=== PATIENT | male | born 1950 | race Caucasian/White ===

== ENCOUNTER 2017-04-09 19:13 | Inpatient (IN) | payer OTHER ==
[~2017-04-09] VITALS: Ht 175.3 cm; Wt 104.5 kg
[2017-04-09 20:15] VITALS: BP 157/103; PULSE 82; TEMP 36.7; O2SAT 96; Ht 175.3 cm; Wt 104.5 kg
[2017-04-09] MEDS ORDERED: ACETAMINOPHEN 325 MG TAB PO PRN (20:15)
[2017-04-09] MEDS ORDERED: BISACODYL 10 MG SUPP PR PRN (20:15)
[2017-04-09] MEDS ORDERED: POLYETHYLENE (MIRALAX) 17 GM PACK PO PRN (20:15)
[2017-04-09] MEDS ORDERED: MAGNESIUM HYDROXIDE SUSP 30 ML UDC PO PRN (20:15)
[2017-04-09] MEDS ORDERED: MoRPHine SULFATE 2 MG/ML CARP IV PRN (20:15)
[2017-04-09] MEDS ORDERED: SOD PHOSPHATE/SOD BIPHOSPHATE ENEMA 132 ML BTL PR PRN (20:15)
[2017-04-09] MEDS ORDERED: ONDANSETRON INJ 2 MG/ML 2 ML VIAL IV PRN (20:15)
[2017-04-09] MEDS ORDERED: OXYCODONE HCL IR 5 MG TAB (IMMEDIATE RELEASE) PO PRN ×2 (20:15)
[2017-04-09] MEDS ORDERED: NALOXONE HCL 0.4 MG/1 ML VIAL/CARP IV PRN (20:15)
[2017-04-09 21:12] LABS: HEMATOCRIT 39.9 % (42-52)
[2017-04-09 21:39] LABS: FERRITIN 38.3 ng/ml (8.0-388.0)
[2017-04-09 22:50] VITALS: BP 167/86; PULSE 86; TEMP 36.6; O2SAT 96
[2017-04-09] MEDS ORDERED: LIDOCAINE HCL 2% JELLY 30 ML TUBE EXT ONE (23:26)
[2017-04-09] MEDS ORDERED: NURSING DECISION MEDICATION ORDER SCH (23:30)
[2017-04-09] MEDS: MoRPHine SULFATE 4 MG/ML 1 ML CARP\\VIAL IV PRN (23:31)
[2017-04-09] MEDS: DOCUSATE SODIUM/SENNA 50/8.6MG TAB PO SCH (23:33)
[2017-04-09] MEDS: LACTATED RINGER'S 1000ML 1,000 ML IV SCH (23:33)
[2017-04-10] VITALS (8 sets, daily range): BP systolic 127–166; BP diastolic 71–85; PULSE 76–91; TEMP 36.4–37.2; O2SAT 94–98
--- NOTE | 2017-04-10 00:30 | HISTORY & PHYSICAL EXAMINATION ---
DATE OF ADMISSION: 04/09/2017 PRIMARY CARE PHYSICIAN: The patient has no primary care doctor. HISTORY OF PRESENT ILLNESS: History is obtained from the patient and records. Medical history is significant for venous insufficiency, past tobacco abuse. Patient was helping somebody clean out the garage today when he lost his balance and landed onto his left side He subsequently noted excruciating left hip pain and was unable to get up. Patient was evaluated at [facility] Emergency Room. Plain x-ray showed left femoral neck fracture. Transferred to [facility] after coordinating with orthopedics due to lack of Orthopedics services at [facility] this weekend. MEDICAL HISTORY: As above. No previous colonoscopies in the past. SURGERIES: None. HOME MEDICATIONS: None. ALLERGIES: No drug allergies. FAMILY HISTORY: No heart disease. No diabetes. No strokes. No blood clots as per the patient. PERSONAL AND SOCIAL HISTORY: Past tobacco abuse. No chronic intake of alcoholic beverages. Retired from . REVIEW OF SYSTEMS: As per HPI. all other ROS negative. FUNCTIONAL HISTORY: Still able to do housework without exertional chest pain or shortness of breath. PHYSICAL EXAMINATION: VITAL SIGNS: Blood pressure was noted to be 150/103, pulse rate 82, RR 16, temperature 37, and sats 96% on room air. GENERAL: Noted to be pleasant. No respiratory distress. SKIN: Pallor. HEENT: Ovid palpebral conjunctivae. Dry mucosa. chronic ptosis on the left. NECK: No JVD. Supple. CHEST: Clear to auscultation. HEART: Regular rate and rhythm. ABDOMEN: Some distention, nontender. EXTREMITIES: Tenderness in the left hip. NEUROLOGIC: No gross focality. LABORATORY DATA: From [place], hemoglobin 12.9, hematocrit 30, white cell count is 10, and platelets 200. Sodium 140, potassium 3.5, chloride 100, CO2 of 22, BUN 21, creatinine 1.1, and glucose 138. Chest x-ray from [facility], no acute pathology. EKG as per my interpretation, normal sinus rhythm, incomplete right bundle branch block. No ischemia. ASSESSMENT: 1. Traumatic left femoral fracture secondary to mechanical fall. 2. Anemia, unknown duration. 3. Hyperglycemia, rule out diabetes. 4. Past tobacco abuse PLAN: F Analgesia. Orthopedics consult RE L femoral fracture. Possible surgery tomorrow as per Dr. Roberts. No medical contraindication to contemplated Orthopedics procedure. Patient is at low risk for cardiac complications for contemplated procedure as per RCRI criteria. Anemia workup. Check hemoglobin A1c. DVT prophylaxis. SCDs for now. Recommend pharmacologic anticoagulation with Lovenox subQ once bleeding risk is deemed to be minimal and negligible postop and if anemia workup negative for GI bleed. Full code. Patient requesting his son be updated on plan care. Mr. Corey Henry Jr. at [phone]. [facility]
[2017-04-10] MEDS ORDERED: LIDOCAINE HCL 2% JELLY 30 ML TUBE EXT PRN (03:45)
[2017-04-10] MEDS: MoRPHine SULFATE 4 MG/ML 1 ML CARP\\VIAL IV PRN ×2 (05:49→08:26)
[2017-04-10 07:03] LABS: COMPLETE YES; EOS % 0.2 %; HEMATOCRIT 39.7 % (42-52); IG% 0.2 %; LYMPH % 8.3 %; MEAN CELL VOLUME 92.1 fL (80-100); MEAN CORPUSCULAR HEMOGLOBIN 31.1 pg (25-34); MEAN CORPUSCULAR HGB CONC 33.8 g/dl (32-36); MEAN PLATELET VOLUME 8.7 fL (7.4-10.4); MONO % 9.2 %; NEUT % 82.1 %; PLATELET COUNT 147 K/uL (130-400); RED BLOOD COUNT 4.31 M/uL (4.7-6.1); WHITE BLOOD COUNT 8.39 K/uL (4.8-10.8)
[2017-04-10] MEDS ORDERED: BACITRACIN 50000 UNIT VIAL ONE ×2 (08:50→12:13)
--- NOTE | 2017-04-10 08:59 | Medical Consult ---
Consultation Note Date of Service Apr 10, 2017. Consultation Note This is a consultation on patient Corey Henry a 66-year-old gentleman seen in the request of Dr. Ho. Patient was assisting a friend clean out her garage in the [place] area when he tripped and fell onto his left side. He had immediate pain and inability to ambulate due to left hip pain. He was transferred to the [facility] where he was seen and evaluated with x -rays and noted to have a displaced left femoral neck fracture. The patient [facility] to come [facility] and was then transferred. The patient claims that he had no loss consciousness or shortness of breath or chest pain prior to the fall. Past medical history: GERD, severe dental caries and halitosis. Past surgical history: Denies Allergies: No known drug allergies Medications: Pepcid Social history: He denies tobacco, drug use, alcohol. History of tobacco abuse. 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 He lives alone. Children, yes. Physical exam: Patient lies supine in his hospital room bed. He is awake and alert. A and O 3. Speech is clear and fluent. Affect is appropriate. Examination of the left hip demonstrates skin is warm dry and intact. The left lower extremity is shortened and externally rotated. He has tenderness on palpation over the left inguinal region and groin. Positive logroll test. Positive heel strike. Unable to ambulate due to pain at the left proximal hip. Active and passive range of motion is limited due to pain and guarding at the left hip. Cap refill is brisk at less than 2 seconds. Dorsalis pedis and posterior tibial pulses are 2 out of 4 bilaterally. Radiographs demonstrate a displaced Garden 4 left femoral neck fracture. Impression: Displaced left Garden 4 femoral neck fracture after a fall on level ground. Recommendations: Hemiarthroplasty left hip to be performed today, nothing by mouth, consent on chart, DVT prophylaxis, preoperative antibiotics. Thank you for the opportunity to consult in care of this patient. Ramos Roberts D.O.
[2017-04-10] MEDS ORDERED: FENTANYL CITRATE INJ 50 MCG/1 ML 2 ML VIAL ONE (10:15)
[2017-04-10] MEDS ORDERED: MIDAZOLAM HCL 1 MG/ML 2ML VIAL ONE ×2 (10:15)
[2017-04-10] MEDS ORDERED: CEFAZOLIN SOD 1 GM VIAL ONE ×2 (10:53→11:03)
[2017-04-10] MEDS ORDERED: LIDOCAINE HCL 2% 2 ML VIAL (20MG/ML) ONE (11:24)
[2017-04-10] MEDS ORDERED: PROPOFOL IV EMULSION 10 MG/ML 20 ML VIAL IV ONE (11:24)
[2017-04-10] MEDS ORDERED: ORTHO JOINT ANESTHETIC ONE (12:13)
[2017-04-10] MEDS ORDERED: POVIDONE-IODINE OP SOLN 30 ML BTL ONE (12:13)
[2017-04-10] MEDS ORDERED: BUPIVACAINE 0.5 % 5 MG/1 ML MPF 30ML VIAL ONE (12:20)
[2017-04-10] MEDS ORDERED: BUPIVACAINE/EPINEPHRINE 0.5% MPF 1:200,000 10 ML VIAL ONE (12:26)
[2017-04-10] MEDS ORDERED: FENTANYL CITRATE INJ 50 MCG/1 ML 2 ML VIAL IV PRN (13:15)
[2017-04-10] MEDS ORDERED: ATROPINE SULFATE 0.1 MG/ML 5ML SYR IV PRN (13:15)
[2017-04-10] MEDS ORDERED: ONDANSETRON INJ 2 MG/ML 2 ML VIAL IV PRN ×2 (13:15→14:00)
[2017-04-10] MEDS ORDERED: EpHEDrine SULFATE INJ 50 MG/ML AMP IV PRN (13:15)
[2017-04-10] MEDS ORDERED: HYDROmorphone INJ 1 MG/ML SYR IV PRN (13:15)
--- NOTE | 2017-04-10 13:43 | [facility] Operative Report ---
Operative Report Operative Date Apr 10, 2017. Pre-Operative Diagnosis Displaced left Garden 4 femoral neck fracture Post-Operative Diagnosis Displaced left Garden 4 femoral neck fracture Procedure(s) Performed Left Hip Hemiarthroplasty with striker accolade 2 stem size #7/132, 26 mm cobalt chrome +0 mm head, U H1 51 mm bipolar head with a polyethylene liner. Surgeon Dr Roberts Oracle Erp Developer Surgeon(s) Joan Pineda PA-C Estimated Blood Loss 50ML Findings See dictation Specimens A. Left femoral head Drains Hemovac 2 Anesthesia spinal with sedation and local intra-articular Complication(s) None Disposition Recovery Room / PACU Indications This is a 66-year-old gentleman who was helping a friend cleaning out her garage in [place]. He felt the ground after he tripped and had immediate left hip pain. He was unable to ambulate. He was then transported eventually to [facility] via [facility] ER. He was noted to have a left displaced Garden 4 femoral neck fracture. Patient was then evaluated and cleared for surgery. Patient was scheduled for surgery as indicated. Description of Procedure All potential risks, benefits, complications, alternatives, rehabilitation, potential for incomplete relief of symptoms, need for further surgery, persistent numbness, weakness, stiffness, persistent pain, DVT, PE, , bone fracture, hardware breakage, nonunion, malunion or wound complications were discussed with the patient. The patient decided to proceed with the procedure as indicated. Procedure: The patient was taken to the operative suite and placed upon the operating table. After review of the consent and identification of proper operative site the patient was sedated and a spinal anesthetic was administered. Patient was then placed in a right lateral decubitus position with the affected side up. Stulberg positioning devices were used to stabilize the pelvis. All bony prominences were properly padded and protected. Axillary roll was placed. Next the left hip was then sterilely prepped and draped in usual fashion. 10 blade scalpel was used to make an incision centered over the greater trochanter extending proximally and distally. The incision was deepened to the subcutaneous tissue. Meticulous hemostasis was achieved with electrocautery. The iliotibial band was then incised in line with the skin incision. A Charnley retractor was applied over towels moistened with sterile saline. The abductor split was made centered over the femoral neck and head. Next the left cauteries used to carefully dissect the gluteus medius and vastus lateralis anteriorly. Next the gluteus minimus and capsule were then incised and also dissected and retracted anteriorly. Dissection was performed down below the level of the femoral neck to the level of the lesser trochanter. The fractured femoral neck was noted and the femoral neck cut was made with a sagittal saw. Next the femoral head was then removed from the acetabulum using a threaded spike and mallet. 51 mm head was then measured to caliper. D1 millimeter femoral head trial was placed in the acetabulum noted to have perfect fit. Next the box osteotome was then used to resect the proximal portion of the femoral endosteal bone. The hand cloth examiner was placed in the proximal femur. Next sequential broaching was performed to a size 7. A standard neck and offset with +0 femoral head was trialed with a 51 mm femoral head outer diameter. This is reduced into the acetabulum and full range of motion was noted with appropriate feel. The hip was stable in internal rotation external rotation abduction and adduction. Next the trial components removed. Pulsatile lavage with bacitracin was then used to cleanse the incision entirely. Next the final femoral component was impacted into the proximal femur. The femoral head and bipolar head were then attached to the proximal femur. The hip was then reduced. Excellent dynamic motion and stability was achieved. There was no instability. Next a dilute Betadine solution was placed in the wound fillet to the level of the skin and left in place proximal to 2 minutes. Next Betadine solution was then suctioned from the wound and then pulsatile lavage used to cleanse the wound with bacitracin lavage. Next 2.5 mm drill holes were made in the greater trochanter to perform an enhanced abductor repair. #5 FiberWire was then passed through the bone tunnels to repair the capsule, gluteus medius, gluteus minimus and the abductor fascia. This was then reattached to the greater trochanter. 10 Slovak Hemovac drains 2 were then passed exiting the anterior aspect of the hip. The FiberWire suture closed her was then tied and cut. Next #5 FiberWire was then used to perform a buried knot closure of the proximal portion of the vastus lateralis and the distal aspect of the gluteus medius. Next #1 Vicryl was then used to close the remainder of the gluteus medius and the vastus lateralis. Next the iliotibial band was then closed using interrupted [id number] #1 Vicryl suture. The wound was then once again irrigated with pulsatile lavage and the hip joint capsules and injected with proximal a 30 mL of half percent Marcaine with epinephrine. Next the dermis was closed using buried interrupted 2-0 Vicryl. Skin was closed using skin gato. Sterile compressive dressing was applied overwrapped with foam tape. The patient was awakened and taken to recovery in stable condition. I attest to the content of the Intraoperative Record and any orders documented therein. Any exceptions are noted below.
--- NOTE | 2017-04-10 13:46 | Progress Note ---
Internal Med Progress Note Date of Service: Apr 10, 2017. Provider Documentation: SUBJECTIVE: Patient is doing well post operatively Pain is controlled. No chest pain, SOB, nausea, vomiting. OBJECTIVE: Vital Signs-as noted below Exam: General-AAOX3, no distress Neck-Supple, No JVD Lungs-AEBE, no wheezing, rhonchi, rales Heart-S1, S2 normal, no murmurs Extremities-S/P Left femoral neck fracture repair Lab data as noted below. ASSESSMENT & PLAN: LEFT FEMORAL NECK FRACTURE S/P TRAUMA Patient slipped and fell while helping a friend in her garage. Was transferred from [facility], as no orthopedic coverage over weekend. -Pre operatively cleared for surgery by admitting doctor -S/P Left femoral neck fracture repair -Pain mx, Wound care, DVT prophylaxis, PT/OT per primary team GERD -on protonix DVT Prophylaxis -Per primary team DISPOSITION To be determined Vital Signs: Date Time Temp Pulse Resp B/P (MAP) Pulse Ox O2 Delivery O2 Flow Rate FiO2 04/10/17 17:35 36.9 91 18 151/78 (102) 94 Room Air 04/10/17 16:40 36.9 85 18 130/76 (94) 98 Room Air 04/10/17 15:33 36.5 90 18 142/83 (102) 97 Room Air 04/10/17 15:01 36.4 89 18 146/81 (102) 97 Room Air 04/10/17 14:30 36.5 76 20 139/80 (99) 94 Nasal Cannula 1.0 04/10/17 14:30 94 Nasal Cannula 1.0 04/10/17 14:30 94 Nasal Cannula 1.0 04/10/17 14:19 79 16 120/77 99 Nasal Cannula 2 04/10/17 14:10 80 16 118/78 98 Nasal Cannula 2 04/10/17 14:00 36.4 77 16 124/71 100 Nasal Cannula 2 04/10/17 13:50 76 16 122/68 100 Oxymask 3 04/10/17 13:43 36.3 80 16 128/76 100 Oxymask 10 04/10/17 08:30 Room Air 04/10/17 07:14 36.9 78 18 166/85 (112) 95 Room Air 04/09/17 23:50 Room Air 04/09/17 22:50 36.6 86 16 167/86 (113) 96 Room Air 04/09/17 20:15 Room Air 04/09/17 20:15 36.7 82 16 157/103 (121) 96 Room Air 04/09/17 20:15 Room Air Lab Results: Results Past 24 Hours Test 04/09/17 20:56 04/10/17 06:22 Range/Units Hemoglobin 13.6 13.4 14.0-18.0 g/dL Hematocrit 39.9 39.7 42-52 % Absolute Reticulocyte Count 0.05 0.02-0.10 10^6/uL Percent Reticulocyte Count 1.2 0.5-2.0 % Iron Level 40 35-175 mcg/dl Total Iron Binding Capacity 332 250-450 mcg/dl Transferrin 255 200-360 mg/dl Transferrin % Saturation 11 20-50 % Ferritin 38.3 8.0-388.0 ng/ml Vitamin B12 Level 214 211-911 pg/mL Folate 8.85 >5.38 ng/mL White Blood Count 8.39 4.8-10.8 K/uL Red Blood Count 4.31 4.7-6.1 M/uL Mean Corpuscular Volume 92.1 80-100 fL Mean Corpuscular Hemoglobin 31.1 25-34 pg Mean Corpuscular Hemoglobin Concent 33.8 32-36 g/dl Platelet Count 147 130-400 K/uL Mean Platelet Volume 8.7 7.4-10.4 fL Neutrophils (%) (Auto) 82.1 % Lymphocytes (%) (Auto) 8.3 % Monocytes (%) (Auto) 9.2 % Eosinophils (%) (Auto) 0.2 % Basophils (%) (Auto) 0.0 % Neutrophils # (Auto) 6.88 1.4-6.5 K/uL Lymphocytes # (Auto) 0.70 1.2-3.4 K/uL Monocytes # (Auto) 0.77 0.11-0.59 K/uL Eosinophils # (Auto) 0.02 0-0.5 K/uL Basophils # (Auto) 0.00 0-0.2 K/uL RDW Standard Deviation 45.2 36.4-46.3 fL RDW Coefficient of Variation 13.5 11.5-14.5 % Immature Granulocyte % (Auto) 0.2 % Immature Granulocyte # (Auto) 0.02 0.00-0.02 K/uL Microbiology Results 04/09/17 MRSA DNA Surveillance Screen - Final, Complete Specimen Negative for MRSA by DNA Probe
[2017-04-10] MEDS ORDERED: ZOLPIDEM TARTRATE 5 MG TAB PO PRN (14:00)
[2017-04-10] MEDS ORDERED: MoRPHine SULFATE 2 MG/ML CARP IV PRN (14:00)
[2017-04-10] MEDS ORDERED: OXYCODONE HCL IR 5 MG TAB (IMMEDIATE RELEASE) PO PRN (14:00)
[2017-04-10] MEDS ORDERED: TAMSULOSIN HCL 0.4 MG CAP PO PRN (14:00)
[2017-04-10] MEDS ORDERED: METOCLOPRAMIDE HCL INJ 5 MG/ML 2 ML VIAL IV PRN (14:00)
[2017-04-10] MEDS ORDERED: MAGNESIUM HYDROXIDE SUSP 30 ML UDC PO PRN (14:00)
[2017-04-10] MEDS ORDERED: DiphenhydrAMINE HCL 50 MG/ML VIAL IV PRN (14:00)
[2017-04-10] MEDS ORDERED: ALUMINUM/MAGNESIUM/SIMETH (MAALOX MAX) 30 ML UDC PO PRN (14:00)
--- NOTE | 2017-04-10 14:00 | Anesthesiology Progress Note ---
Anesthesia Post Op Note Date & Time Apr 10, 2017 at 14:00 Vital Signs Pain Intensity: 0 Vital Signs Past 12 Hours Date Time Temp Pulse Resp B/P (MAP) Pulse Ox O2 Delivery O2 Flow Rate FiO2 04/10/17 13:50 76 16 122/68 100 Oxymask 3 04/10/17 13:43 36.3 80 16 128/76 100 Oxymask 10 04/10/17 08:30 Room Air 04/10/17 07:14 36.9 78 18 166/85 (112) 95 Room Air Notes Mental Status: alert / awake / arousable, participated in evaluation Pt Amnestic to Procedure: Yes Nausea / Vomiting: adequately controlled Pain: adequately controlled Airway Patency, RR, SpO2: stable & adequate BP & HR: stable & adequate Hydration State: stable & adequate Neuraxial Anesthesia: was administered, sensory block is resolving Anesthetic Complications: no major complications apparent
--- NOTE | 2017-04-10 14:32 | DIAGNOSTIC IMAGING REPORT ---
AP PELVIS AND LEFT HIP 2 VIEWS CLINICAL HISTORY: Left hip arthroplasty COMPARISON STUDY: Outside radiographic study dated 04/09/2017 FINDINGS: There are postsurgical changes of a bipolar left hip arthroplasty. There is an overlying surgical drain. There is air in the soft tissues. No acute fractures are visualized. There are overlying skin gato. There is a stable 24 mm sclerotic lesion in the intertrochanteric portion of the right hip. IMPRESSION: 1. Postsurgical changes of a bipolar left hip arthroplasty 2. Stable 24 mm sclerotic lesion within the intertrochanteric portion of the right Electronically signed by: Js Burroughs M.D. 04/10/2017 2:30 PM Dictated Date/Time: 04/10/2017 2:29 PM
[2017-04-10] MEDS: LACTATED RINGER'S 1000ML 1,000 ML IV SCH (16:07)
[2017-04-10] MEDS: ACETAMINOPHEN 500 MG TAB PO SCH ×2 (16:08→23:39)
[2017-04-10] MEDS: DOCUSATE SODIUM/SENNA 50/8.6MG TAB PO SCH (21:00)
[2017-04-10] MEDS: FERROUS GLUCONATE 324 MG TAB PO SCH (21:27)
[2017-04-10] MEDS: SENNA 8.6 MG TAB PO SCH (21:27)
[2017-04-10] MEDS: ASPIRIN 81 MG ECTAB PO SCH (21:27)
[2017-04-10] MEDS ORDERED: NURSING DECISION MEDICATION ORDER SCH (23:15)
[2017-04-11 03:10] VITALS: BP 135/75; PULSE 79; TEMP 36.6; O2SAT 96
[2017-04-11] MEDS: ACETAMINOPHEN 500 MG TAB PO SCH ×3 (06:14→22:27)
[2017-04-11 06:56] LABS: ESTIMATED AVERAGE GLUCOSE 100 mg/dl; HA1C FLAG Normal (Normal)
[2017-04-11 07:14] LABS: BASO % 0.1 %; BASO ABS # 0.01 K/uL (0-0.2); COMPLETE YES; EOS % 0.6 %; HEMATOCRIT 35.7 % (42-52); IG% 0.2 %; LYMPH % 8.3 %; LYMPH ABS # 0.74 K/uL (1.2-3.4); MEAN CELL VOLUME 92.7 fL (80-100); MEAN CORPUSCULAR HEMOGLOBIN 32.7 pg (25-34); MEAN CORPUSCULAR HGB CONC 35.3 g/dl (32-36); MEAN PLATELET VOLUME 8.5 fL (7.4-10.4); MONO % 9.5 %; NEUT % 81.3 %; PLATELET COUNT 117 K/uL (130-400); RED BLOOD COUNT 3.85 M/uL (4.7-6.1); WHITE BLOOD COUNT 8.93 K/uL (4.8-10.8)
[2017-04-11 07:36] VITALS: BP 131/73; PULSE 79; TEMP 37; O2SAT 95
--- NOTE | 2017-04-11 08:04 | Orthopedic Progress Note ---
Orthopedic Progress Note Date of Service Apr 11, 2017. Subjective Post OP Day: 1 Reports: feeling well, pain controlled w PO medications, Denies: complaints, chest pain, SOB, light headedness, calf pain Objective calves soft nontender, N/V intact, hip located, capillary refill less than 2 sec., A&O x3, toes mobile, hemovac drainage (~300 cc) Date Time Temp Pulse Resp B/P (MAP) Pulse Ox O2 Delivery O2 Flow Rate FiO2 04/11/17 07:36 37.0 79 18 131/73 (92) 95 Room Air 04/11/17 03:10 36.6 79 18 135/75 (95) 96 Room Air 04/10/17 23:40 Room Air 04/10/17 23:15 37.2 83 18 127/71 (89) 94 Room Air 04/10/17 23:15 37.2 83 18 127/71 (89) 94 Room Air 04/10/17 19:00 36.6 88 18 128/75 (92) 94 Room Air 04/10/17 17:35 36.9 91 18 151/78 (102) 94 Room Air 04/10/17 16:40 36.9 85 18 130/76 (94) 98 Room Air 04/10/17 15:33 36.5 90 18 142/83 (102) 97 Room Air 04/10/17 15:30 Room Air 04/10/17 15:01 36.4 89 18 146/81 (102) 97 Room Air 04/10/17 14:30 36.5 76 20 139/80 (99) 94 Nasal Cannula 1.0 04/10/17 14:30 94 Nasal Cannula 1.0 04/10/17 14:30 94 Nasal Cannula 1.0 04/10/17 14:19 79 16 120/77 99 Nasal Cannula 2 04/10/17 14:10 80 16 118/78 98 Nasal Cannula 2 04/10/17 14:00 36.4 77 16 124/71 100 Nasal Cannula 2 04/10/17 13:50 76 16 122/68 100 Oxymask 3 04/10/17 13:43 36.3 80 16 128/76 100 Oxymask 10 04/10/17 08:30 Room Air Laboratory Results 24 Hours: Test 04/11/17 06:52 White Blood Count 8.93 K/uL Red Blood Count 3.85 M/uL Hemoglobin 12.6 g/dL Hematocrit 35.7 % Mean Corpuscular Volume 92.7 fL Mean Corpuscular Hemoglobin 32.7 pg Mean Corpuscular Hemoglobin Concent 35.3 g/dl Platelet Count 117 K/uL Mean Platelet Volume 8.5 fL Neutrophils (%) (Auto) 81.3 % Lymphocytes (%) (Auto) 8.3 % Monocytes (%) (Auto) 9.5 % Eosinophils (%) (Auto) 0.6 % Basophils (%) (Auto) 0.1 % Neutrophils # (Auto) 7.26 K/uL Lymphocytes # (Auto) 0.74 K/uL Monocytes # (Auto) 0.85 K/uL Eosinophils # (Auto) 0.05 K/uL Basophils # (Auto) 0.01 K/uL Assessment & Plan Assessment: POD #1 s/p left hip bipolar hemiarthroplasty Plan: Patient lives alone in an apartment but ~20 steps to get to his floor. Discussed rehab vs. home with home health and going to his son's house. He will discuss this further with social worker school. PT/OT DVT prophylaxis--ASA 81 mg BID for 4 wks. D/C planning Inhouse Planning Pain Management: Morphine, PO Tylenol, Oxy IR DVT Prophylaxis: TEDs, SCDs, ASA Discharge Planning Discharge Planning: uncertain ([facility] vs. home with home health and going to his son's house) DVT Prophylaxis: TEDs, ASA
[2017-04-11] MEDS: FERROUS GLUCONATE 324 MG TAB PO SCH ×3 (08:38→17:55)
[2017-04-11] MEDS: ASPIRIN 81 MG ECTAB PO SCH ×2 (08:38→20:44)
[2017-04-11] MEDS: MULTIVITAMIN TAB PO SCH (08:39)
[2017-04-11] MEDS: PANTOprazole SOD 40 MG TAB PO SCH (08:39)
--- NOTE | 2017-04-11 10:42 | Progress Note ---
Internal Med Progress Note Date of Service: Apr 11, 2017. Provider Documentation: SUBJECTIVE: Patient is doing well post operatively. Pain is controlled. OOB to chair. No chest pain, SOB, nausea, vomiting. OBJECTIVE: Vital Signs-as noted below Exam: General-AAOX3, no distress Neck-Supple, No JVD Lungs-AEBE, no wheezing, rhonchi, rales Heart-S1, S2 normal, no murmurs Extremities-S/P Left femoral neck fracture repair, drain + Lab data as noted below. ASSESSMENT & PLAN: LEFT FEMORAL NECK FRACTURE S/P TRAUMA : Patient slipped and fell while helping a friend in her garage. Was transferred from [facility], as no orthopedic coverage there over weekend. -S/P Left Hip Bipolar hemiarthroplasty on 04/10/17 -Pain mx, Wound care, DVT prophylaxis, PT/OT per orthopedics -H & H monitoring- Stable -Ortho on board- appreciate inputs ANEMIA Had anemia work up on admission- Iron studies, folate, vit b12- normal -Post operatively H & H - stable with a slight drop GERD -on protonix DVT Prophylaxis -ASA BID x 4 weeks per ortho DISPOSITION Likely home with home health - per patient would move to his son's home as has steps at his home. Would prefer Home with [facility] vs rehab. SS on board. Vital Signs: Date Time Temp Pulse Resp B/P (MAP) Pulse Ox O2 Delivery O2 Flow Rate FiO2 04/11/17 07:40 Room Air 04/11/17 07:36 37.0 79 18 131/73 (92) 95 Room Air 04/11/17 03:10 36.6 79 18 135/75 (95) 96 Room Air 04/10/17 23:40 Room Air 04/10/17 23:15 37.2 83 18 127/71 (89) 94 Room Air 04/10/17 23:15 37.2 83 18 127/71 (89) 94 Room Air 04/10/17 19:00 36.6 88 18 128/75 (92) 94 Room Air 04/10/17 17:35 36.9 91 18 151/78 (102) 94 Room Air 04/10/17 16:40 36.9 85 18 130/76 (94) 98 Room Air 04/10/17 15:33 36.5 90 18 142/83 (102) 97 Room Air 04/10/17 15:30 Room Air 04/10/17 15:01 36.4 89 18 146/81 (102) 97 Room Air 04/10/17 14:30 36.5 76 20 139/80 (99) 94 Nasal Cannula 1.0 04/10/17 14:30 94 Nasal Cannula 1.0 04/10/17 14:30 94 Nasal Cannula 1.0 04/10/17 14:19 79 16 120/77 99 Nasal Cannula 2 04/10/17 14:10 80 16 118/78 98 Nasal Cannula 2 04/10/17 14:00 36.4 77 16 124/71 100 Nasal Cannula 2 04/10/17 13:50 76 16 122/68 100 Oxymask 3 04/10/17 13:43 36.3 80 16 128/76 100 Oxymask 10 Lab Results: Results Past 24 Hours Test 04/11/17 06:52 Range/Units White Blood Count 8.93 4.8-10.8 K/uL Red Blood Count 3.85 4.7-6.1 M/uL Hemoglobin 12.6 14.0-18.0 g/dL Hematocrit 35.7 42-52 % Mean Corpuscular Volume 92.7 80-100 fL Mean Corpuscular Hemoglobin 32.7 25-34 pg Mean Corpuscular Hemoglobin Concent 35.3 32-36 g/dl Platelet Count 117 130-400 K/uL Mean Platelet Volume 8.5 7.4-10.4 fL Neutrophils (%) (Auto) 81.3 % Lymphocytes (%) (Auto) 8.3 % Monocytes (%) (Auto) 9.5 % Eosinophils (%) (Auto) 0.6 % Basophils (%) (Auto) 0.1 % Neutrophils # (Auto) 7.26 1.4-6.5 K/uL Lymphocytes # (Auto) 0.74 1.2-3.4 K/uL Monocytes # (Auto) 0.85 0.11-0.59 K/uL Eosinophils # (Auto) 0.05 0-0.5 K/uL Basophils # (Auto) 0.01 0-0.2 K/uL RDW Standard Deviation 46.9 36.4-46.3 fL RDW Coefficient of Variation 13.9 11.5-14.5 % Immature Granulocyte % (Auto) 0.2 % Immature Granulocyte # (Auto) 0.02 0.00-0.02 K/uL
[2017-04-11 15:28] VITALS: BP 145/82; PULSE 89; TEMP 36.9; O2SAT 97
[2017-04-11] MEDS: SENNA 8.6 MG TAB PO SCH (20:44)
[2017-04-11] MEDS: DOCUSATE SODIUM/SENNA 50/8.6MG TAB PO SCH (20:44)
[2017-04-11 23:15] VITALS: BP 127/75; PULSE 79; TEMP 36.9; O2SAT 96
[2017-04-12] MEDS: ACETAMINOPHEN 500 MG TAB PO SCH ×3 (06:33→22:19)
[2017-04-12 07:45] LABS: COMPLETE YES; EOS % 0.5 %; HEMATOCRIT 36.5 % (42-52); IG% 0.1 %; LYMPH % 10.2 %; LYMPH ABS # 0.86 K/uL (1.2-3.4); MEAN CELL VOLUME 92.9 fL (80-100); MEAN CORPUSCULAR HEMOGLOBIN 32.1 pg (25-34); MEAN CORPUSCULAR HGB CONC 34.5 g/dl (32-36); MEAN PLATELET VOLUME 8.5 fL (7.4-10.4); MONO % 10.2 %; PLATELET COUNT 121 K/uL (130-400); RED BLOOD COUNT 3.93 M/uL (4.7-6.1); WHITE BLOOD COUNT 8.41 K/uL (4.8-10.8)
[2017-04-12 07:48] VITALS: BP 138/82; PULSE 71; TEMP 36.6; O2SAT 97
--- NOTE | 2017-04-12 07:57 | Orthopedic Progress Note ---
Orthopedic Progress Note Date of Service Apr 12, 2017. Subjective Post OP Day: 2 Reports: feeling well, pain controlled w PO medications, Denies: complaints, chest pain, SOB, calf pain Objective calves soft nontender, N/V intact, hip located, capillary refill less than 2 sec., dressing C/D/I, A&O x3, toes mobile Date Time Temp Pulse Resp B/P (MAP) Pulse Ox O2 Delivery O2 Flow Rate FiO2 04/12/17 07:48 36.6 71 16 138/82 (100) 97 Room Air 04/11/17 23:20 Room Air 04/11/17 23:15 36.9 79 18 127/75 (92) 96 Room Air 04/11/17 15:40 Room Air 04/11/17 15:28 36.9 89 18 145/82 (103) 97 Room Air Laboratory Results 24 Hours: Test 04/12/17 07:26 White Blood Count 8.41 K/uL Red Blood Count 3.93 M/uL Hemoglobin 12.6 g/dL Hematocrit 36.5 % Mean Corpuscular Volume 92.9 fL Mean Corpuscular Hemoglobin 32.1 pg Mean Corpuscular Hemoglobin Concent 34.5 g/dl Platelet Count 121 K/uL Mean Platelet Volume 8.5 fL Neutrophils (%) (Auto) 79.0 % Lymphocytes (%) (Auto) 10.2 % Monocytes (%) (Auto) 10.2 % Eosinophils (%) (Auto) 0.5 % Basophils (%) (Auto) 0.0 % Neutrophils # (Auto) 6.64 K/uL Lymphocytes # (Auto) 0.86 K/uL Monocytes # (Auto) 0.86 K/uL Eosinophils # (Auto) 0.04 K/uL Basophils # (Auto) 0.00 K/uL Assessment & Plan Assessment: POD #2 s/p left hip bipolar hemiarthroplasty Plan: Patient lives alone in an apartment but ~20 steps to get to his floor. Rehab vs. SNF, possibly today. Orthopedically stable. Will sign off and follow up with patient in 2 weeks. PT/OT DVT prophylaxis--ASA 81 mg BID for 4 wks. D/C planning Inhouse Planning Pain Management: Morphine, PO Tylenol, Oxy IR DVT Prophylaxis: TEDs, SCDs, ASA Discharge Planning Discharge Planning: uncertain ([facility] vs. SNF, possibly today) DVT Prophylaxis: TEDs, ASA
--- NOTE | 2017-04-12 07:59 | Consultant Recommendations ---
Chiller Tender Recommendations Date of Service Apr 12, 2017. Chiller Tender Recommendations ACTIVITY RECOMMENDATIONS: SELF CARE INSTRUCTIONS AFTER HIP BIPOLAR HEMIARTHROPLASTY Until the incision and soft tissues around your hip have healed, there is a possibility that the hip prosthesis could dislocate. A. Observe the following precautions to prevent dislocation: 1. Don't bend your hip greater than 90 degrees. 2. Avoid crossing your legs or ankles while standing or lying. 3. Sit with your feet placed 6 inches apart. 4. When sitting, keep your knees below your hips. Sit on a firm surface, avoid deep, soft chairs and couches. Use an elevated toilet seat in the bathroom. 5. Don't bend over at the waist. Use a long handled shoehorn and a sock aid to help you put on your shoes and socks. A cocoa room operator can help you merchandise pickup/receiving associate objects that are too high or too low to reach. 6. Keep car riding to a minimum for at least one month after surgery. B. Your balance may be shaky for a while. Use crutches or a walker until directed by your doctor. C. Use hand rails when walking on stairs. D. Wear low heeled shoes with non-slip soles. E. Be sure that your floors are free of things that could trip you - throw rugs , electrical cords, small objects. Avoid wet and waxed floors, especially with crutches and canes. F. Try to walk several times a day with rest periods between. G. Continue with all the exercises taught to you in the hospital. Again, make walking a part of your daily routine. H. It is okay to shower if minimal to no drainage from incision. No baths. Do not soak wound. I. Physical Therapy as instructed by your Physician. SPECIAL CARE INSTRUCTIONS: VERY IMPORTANT TO READ AND REVIEW A. You may still be at risk for phlebitis and blood clots. 1. Wear surgical stockings (RANJIT hose) for one month, 20 hours daily, after surgery to improve circulation and reduce swelling. 2. Take Aspirin 81 mg every 12 hours for 30 days (blood thinning medications ), as directed by your doctor. 3. Have a pro-time (blood test) drawn according to your doctor's instructions. B. We encourage and will assist you in choosing a home-health agency of your choice. Home health nurses and therapists will monitor your temperature, wound healing and progress in exercise and walking. Home health nurses may also draw the blood for the pro-time test. They may instruct you in decreasing or increasing the amount of Coumadin you take. C. You must take antibiotics before having dental work, bladder, bowel and other surgery. Your doctor will provide you with a permanent card to carry describing precautions. D. Call [facility] if you have a temperature of 101 or greater, redness or swelling around the incision, cloudy drainage from incision, or sudden increase in pain in your hip, not relieved by your regular pain medication. E. Please call the office at if you have any concerns or questions about your operation or recovery. FOLLOW UP VISIT: If appointment is not already scheduled: Please call [facility] to make a follow-up appointment for 2 weeks after your surgery at .
[2017-04-12 08:06] LABS: BUN/CREATININE RATIO 27.4 (10-20); CALCIUM 8.4 mg/dl (8.5-10.1); POTASSIUM 3.7 mmol/L (3.5-5.1)
[2017-04-12 08:22] VITALS: O2SAT 97
[2017-04-12] MEDS: ASPIRIN 81 MG ECTAB PO SCH ×2 (09:04→20:46)
[2017-04-12] MEDS: PANTOprazole SOD 40 MG TAB PO SCH (09:04)
[2017-04-12] MEDS: FERROUS GLUCONATE 324 MG TAB PO SCH ×3 (09:04→18:24)
[2017-04-12] MEDS: MULTIVITAMIN TAB PO SCH (09:04)
[2017-04-12 10:00] VITALS: BP 120/78; PULSE 91; O2SAT 99
--- NOTE | 2017-04-12 13:15 | Progress Note ---
Medicine Progress Note Date & Time of Visit: Apr 12, 2017 at 1000. Subjective 66 yo M s/p mechanical fall at home with L femoral neck fracture s/p surgery on 04/10 -drain removed yesterday with some trancutaneous drainage which appears to have slowed. -continues to work with PT/OT daily and doing well with them; ambulates in hallway with assist -tolerating PO -denies n/v/CP/SOB -denies post-op hip pain-states pain is well-managed. Objective Last 8 Hrs Date Time Temp Pulse Resp B/P (MAP) Pulse Ox O2 Delivery O2 Flow Rate FiO2 04/12/17 08:22 97 Room Air 04/12/17 07:48 36.6 71 16 138/82 (100) 97 Room Air 04/12/17 07:45 Room Air Physical Exam: GEN: WNWD, in no acute distress, alert and appropriate, sitting in bedside chair. HEENT: NC/AT, pupils are equal and round, normal sclerae, MMM CARDIO: reg rate, S1/2 heard without m/g/r LUNGS: CTA bilaterally, no crackles, rales or wheezes, good diaphragmatic excursion ABD: soft, non-tender, non-distended, no rebound or guarding, +BS EXTREMITY: RP and DP palpable 2+ bilat, no LE swelling or edema, extremities are warm and well-perfused NEURO: CN 2-12 grossly intact, sensation intact throughout, no gross focal deficits. MUSC: 5/5 strength in knee flexion/extension on R leg, 4/5 on R leg, noted generalized weakness SKIN: warm and dry Laboratory Results: Last 24 Hours Test 04/12/17 07:26 White Blood Count 8.41 K/uL Red Blood Count 3.93 M/uL Hemoglobin 12.6 g/dL Hematocrit 36.5 % Mean Corpuscular Volume 92.9 fL Mean Corpuscular Hemoglobin 32.1 pg Mean Corpuscular Hemoglobin Concent 34.5 g/dl Platelet Count 121 K/uL Mean Platelet Volume 8.5 fL Neutrophils (%) (Auto) 79.0 % Lymphocytes (%) (Auto) 10.2 % Monocytes (%) (Auto) 10.2 % Eosinophils (%) (Auto) 0.5 % Basophils (%) (Auto) 0.0 % Neutrophils # (Auto) 6.64 K/uL Lymphocytes # (Auto) 0.86 K/uL Monocytes # (Auto) 0.86 K/uL Eosinophils # (Auto) 0.04 K/uL Basophils # (Auto) 0.00 K/uL RDW Standard Deviation 48.3 fL RDW Coefficient of Variation 14.0 % Immature Granulocyte % (Auto) 0.1 % Immature Granulocyte # (Auto) 0.01 K/uL Sodium Level 140 mmol/L Potassium Level 3.7 mmol/L Chloride Level 103 mmol/L Carbon Dioxide Level 32 mmol/L Anion Gap 5.0 mmol/L Blood Urea Nitrogen 27 mg/dl Creatinine 1.00 mg/dl Est Creatinine Clear Calc Drug Dose 85.4 ml/min Estimated GFR () 89.9 Estimated GFR (Non- 77.5 BUN/Creatinine Ratio 27.4 Random Glucose 101 mg/dl Calcium Level 8.4 mg/dl Assessment & Plan 66 yo M s/p mechanical fall at home with L femoral neck fracture s/p surgery on 04/10 1. LEFT FEMORAL NECK FRACTURE S/P TRAUMA Patient slipped and fell at home; was transferred from [facility], as no orthopedic coverage there over weekend. -S/P Left Hip Bipolar hemiarthroplasty on 04/10/17 -Pain mx, Wound care, DVT prophylaxis, PT/OT per orthopedics -H & H monitoring- Stable -Ortho on board- appreciate inputs -pt decided rehab is OK going along with PT/OT recommendations-referral placed and likely dc tomorrow. 2. ANEMIA: Had anemia work up on admission- Iron studies, folate, - normal. B12 was low normal. Will start daily supplementation. -Post operatively H & H - stable, no indications for transfusion at this time. 3. GERD- protonix 4. Thrombocytopenia-stable, not much different from baseline. No bleeding issues at this time. Cont to monitor. DVT Prophylaxis -ASA BID x 4 weeks per ortho [facility]. DO [facility] Consultants: Ortho, PT/OT Current Inpatient Medications: Current Inpatient Medications Medications (Trade) Dose Ordered Sig/Darya Route Start Time Stop Time Status Last Admin Dose Admin Acetaminophen (Tylenol Tab) 650 mg Q6H PRN PO 04/09/17 20:15 05/09/17 20:14 Future Hold Naloxone HCl (Narcan Inj) 0.1 mg PRN PRN IV 04/09/17 20:15 05/09/17 20:14 Senna/Docusate Sodium (Senokot S Tab) 2 tab HS PO 04/09/17 21:00 05/09/17 20:59 04/11/17 20:44 2 TAB Polyethylene (Miralax Powder Packet) 17 gm DAILY PRN PO 04/09/17 20:15 05/09/17 20:14 Magnesium Hydroxide (Milk Of Magnesia Susp) 30 ml DAILY PRN PO 04/09/17 20:15 05/09/17 20:14 Bisacodyl (Dulcolax Supp) 10 mg DAILY PRN ID 04/09/17 20:15 05/09/17 20:14 Sodium Biphosphate/ Sodium Phosphate (Fleet Enema) 132 ml PRN PRN ID 04/09/17 20:15 Ondansetron HCl (Zofran Inj) 4 mg Q6H PRN IV 04/09/17 20:15 05/09/17 20:14 Lidocaine HCl (Xylocaine Jelly 2%) PRN PRN EXT 04/10/17 03:45 05/10/17 03:44 Ondansetron HCl (Zofran Inj) 4 mg ONE PRN IV 04/10/17 13:15 Oxycodone HCl (Roxicodone Immediate Rel Tab) 1 TABLET FOR PAIN RATING... Q4H PRN PO 04/10/17 14:00 04/24/17 13:59 Morphine Sulfate (MoRPHine SULFATE INJ) 2 mg Q3HWA PRN IV 04/10/17 14:00 04/24/17 13:59 Acetaminophen (Tylenol Tab) 1,000 mg Q8H PO 04/10/17 15:00 05/10/17 14:59 04/12/17 06:33 1,000 MG Magnesium Hydroxide (Milk Of Magnesia Susp) 30 ml Q6H PRN PO 04/10/17 14:00 05/10/17 13:59 Senna (Senokot Tab) 17.2 mg HS PO 04/10/17 21:00 05/10/17 20:59 04/11/17 20:44 17.2 MG Diphenhydramine HCl (Benadryl Inj) 25 mg Q8H PRN IV 04/10/17 14:00 05/10/17 13:59 Al Hydrox/Mg Hydrox/Simethicone (Maalox Max Susp) 15 ml Q4H PRN PO 04/10/17 14:00 05/10/17 13:59 Zolpidem Tartrate (Ambien Tab) 5 mg HSZ PRN PO 04/10/17 14:00 05/10/17 13:59 Multivitamins (Multivitamin Tab) 1 tab QAM PO 04/11/17 09:00 05/11/17 08:59 04/12/17 09:04 1 TAB Metoclopramide HCl (Reglan Inj) 10 mg Q6H PRN IV 04/10/17 14:00 05/10/17 13:59 Ferrous Gluconate (Ferrous Gluconate Tab) 324 mg TIDM PO 04/10/17 17:45 05/10/17 17:44 04/12/17 12:49 324 MG Pantoprazole Sodium (Protonix Tab) 40 mg QAM PO 04/11/17 09:00 05/11/17 08:59 04/12/17 09:04 40 MG Tamsulosin HCl (Flomax Cap) 0.4 mg QAM PRN PO 04/10/17 14:00 05/10/17 13:59 Aspirin (Ecotrin Tab) 81 mg BID PO 04/10/17 21:00 05/10/17 20:59 04/12/17 09:04 81 MG
[2017-04-12] MEDS: CYANOCOBALAMIN 500 MCG TAB (VIT B-12) PO SCH (14:21)
[2017-04-12 15:08] VITALS: BP 129/75; PULSE 84; TEMP 36.7; O2SAT 96
[2017-04-12] MEDS: DOCUSATE SODIUM/SENNA 50/8.6MG TAB PO SCH (20:47)
[2017-04-12] MEDS: SENNA 8.6 MG TAB PO SCH (20:47)
[2017-04-12 23:15] VITALS: BP 136/79; PULSE 79; TEMP 37; O2SAT 96
[2017-04-13] MEDS: ACETAMINOPHEN 500 MG TAB PO SCH ×2 (05:59→15:05)
[2017-04-13 06:05] LABS: BASO % 0.1 %; BASO ABS # 0.01 K/uL (0-0.2); COMPLETE YES; EOS % 1.5 %; HEMATOCRIT 35.6 % (42-52); IG% 0.1 %; LYMPH ABS # 0.95 K/uL (1.2-3.4); MEAN CELL VOLUME 94.4 fL (80-100); MEAN CORPUSCULAR HEMOGLOBIN 31.3 pg (25-34); MEAN CORPUSCULAR HGB CONC 33.1 g/dl (32-36); MEAN PLATELET VOLUME 9.1 fL (7.4-10.4); MONO % 10.1 %; NEUT % 75.2 %; PLATELET COUNT 142 K/uL (130-400); RED BLOOD COUNT 3.77 M/uL (4.7-6.1); WHITE BLOOD COUNT 7.31 K/uL (4.8-10.8)
[2017-04-13 06:19] VITALS: BP 131/72; PULSE 76; TEMP 36.6; O2SAT 98
[2017-04-13 06:34] LABS: BUN/CREATININE RATIO 27.8 (10-20); CALCIUM 8.2 mg/dl (8.5-10.1); CREATININE 0.98 mg/dl (0.60-1.40); MAGNESIUM 2.3 mg/dl (1.8-2.4); POTASSIUM 3.5 mmol/L (3.5-5.1)
[2017-04-13] MEDS: FERROUS GLUCONATE 324 MG TAB PO SCH ×2 (07:27→12:42)
[2017-04-13] MEDS: MULTIVITAMIN TAB PO SCH (07:27)
[2017-04-13] MEDS: PANTOprazole SOD 40 MG TAB PO SCH (07:27)
[2017-04-13] MEDS: ASPIRIN 81 MG ECTAB PO SCH (07:27)
[2017-04-13] MEDS: CYANOCOBALAMIN 500 MCG TAB (VIT B-12) PO SCH (07:27)
[2017-04-13 08:07] VITALS: BP 136/72; PULSE 74; TEMP 36.6; O2SAT 98
[2017-04-13 09:02] VITALS: O2SAT 98
[2017-04-13 14:22] VITALS: BP 136/72; PULSE 74; TEMP 36.6; O2SAT 98
[2017-04-13 15:10] VITALS: BP 129/79; PULSE 92; TEMP 36.6; O2SAT 98
[2017-04-13] MEDS ORDERED: VTMB12 PO (15:50)
[2017-04-13] MEDS ORDERED: ASPEC81 PO (15:50)
--- NOTE | 2017-04-13 15:55 | Discharge Instructions ---
Discharge Instructions Date of Service Apr 13, 2017. Admission Reason for Admission: Hip Fracture Discharge Discharge Diagnosis / Problem: Hip fracture Discharge Goals Goal(s): Improve function, Increase independence Activity Recommendations Activity Limitations: per Instructions/Follow-up section . Instructions / Follow-Up Instructions / Follow-Up Please take all medications as instructed. It is recommended that you get an appointment with your primary care physician ( PCP) within one week of discharge from the rehabilitation facility. This is for follow-up from you hospitalization. You have a 24mm sclerotic lesion on a bone in your right hip that was seen on xray. This may need to be followed for stability by your PCP and is worth discussing with them at this follow-up visit. Please follow-up with Orthopedics per the instructions below; please comply with all post-operative instructions including aspirin twice daily for 30 days to prevent post-operative blood clots. It was a pleasure taking care of you! Call if you have any questions or problems. You can reach a [facility] hospitalist on duty at [facility] 24 hours a day by calling [phone]. Take care of yourself. Nikkie Villalpando DO [facility] Hospitalist Current Hospital Diet Patient's current hospital diet: AHA Diet (Heart Healthy) Discharge Diet Recommended Diet: AHA Diet (Heart Healthy) Procedures Procedures Performed: Left Hip Hemiarthroplasty with striker accolade 2 stem size #7/132, 26 mm cobalt chrome +0 mm head, U H1 51 mm bipolar head with a polyethylene liner. Pending Studies Studies pending at discharge: no Laboratory Results Hemoglobin A1c Test 04/09/17 20:56 Range/Units Estimated Average Glucose 100 mg/dl Hemoglobin A1c 5.1 4.5-5.6 % Medical Emergencies . Who to Call and When: Medical Emergencies: If at any time you feel your situation is an emergency, please call 911 immediately. . Non-Emergent Contact Non-Emergency issues call your: Primary Care Provider, Surgeon . . "Provider Documentation" section prepared by Nikkie Villalpando. . Surface Logging Systems Logger Recommendations Surface Logging Systems Logger Recommendations: ACTIVITY RECOMMENDATIONS: SELF CARE INSTRUCTIONS AFTER HIP BIPOLAR HEMIARTHROPLASTY Until the incision and soft tissues around your hip have healed, there is a possibility that the hip prosthesis could dislocate. A. Observe the following precautions to prevent dislocation: 1. Don't bend your hip greater than 90 degrees. 2. Avoid crossing your legs or ankles while standing or lying. 3. Sit with your feet placed 6 inches apart. 4. When sitting, keep your knees below your hips. Sit on a firm surface, avoid deep, soft chairs and couches. Use an elevated toilet seat in the bathroom. 5. Don't bend over at the waist. Use a long handled shoehorn and a sock aid to help you put on your shoes and socks. A patient access registrar can help you garbage pick up man objects that are too high or too low to reach. 6. Keep car riding to a minimum for at least one month after surgery. B. Your balance may be shaky for a while. Use crutches or a walker until directed by your doctor. C. Use hand rails when walking on stairs. D. Wear low heeled shoes with non-slip soles. E. Be sure that your floors are free of things that could trip you - throw rugs , electrical cords, small objects. Avoid wet and waxed floors, especially with crutches and canes. F. Try to walk several times a day with rest periods between. G. Continue with all the exercises taught to you in the hospital. Again, make walking a part of your daily routine. H. It is okay to shower if minimal to no drainage from incision. No baths. Do not soak wound. I. Physical Therapy as instructed by your Physician. SPECIAL CARE INSTRUCTIONS: VERY IMPORTANT TO READ AND REVIEW A. You may still be at risk for phlebitis and blood clots. 1. Wear surgical stockings (RANJIT hose) for one month, 20 hours daily, after surgery to improve circulation and reduce swelling. 2. Take Aspirin 81 mg every 12 hours for 30 days (blood thinning medications ), as directed by your doctor. 3. Have a pro-time (blood test) drawn according to your doctor's instructions. B. We encourage and will assist you in choosing a home-health agency of your choice. Home health nurses and therapists will monitor your temperature, wound healing and progress in exercise and walking. Home health nurses may also draw the blood for the pro-time test. They may instruct you in decreasing or increasing the amount of Coumadin you take. C. You must take antibiotics before having dental work, bladder, bowel and other surgery. Your doctor will provide you with a permanent card to carry describing precautions. D. Call [facility] [place] if you have a temperature of 101 or greater, redness or swelling around the incision, cloudy drainage from incision, or sudden increase in pain in your hip, not relieved by your regular pain medication. E. Please call the office at if you have any concerns or questions about your operation or recovery. FOLLOW UP VISIT: If appointment is not already scheduled: Please call [facility] [place] to make a follow-up appointment for 2 weeks after your surgery at . VTE Core Measure Inpt VTE Proph given/why not?: Other Anticoagulation (aspirin provided)
[2017-04-13] MEDS ORDERED: RXC5 PO (16:03)
[2017-04-13] MEDS ORDERED: SNK PO (16:03)
--- NOTE | 2017-04-14 08:58 | Discharge Summary ---
Discharge Summary Date of Service Apr 14, 2017. Discharge Summary Admission Date: Apr 09, 2017 at 20:19 Discharge Date: Apr 13, 2017 Discharge Disposition: senior care facility Principal Diagnosis: Mechanical fall resulting in L femoral neck fracture s/p L hip bipolar hemiarthroplasty Mild post-operative acute blood loss anemia Thrombocytopenia-resolved. Procedures: L bipolar hemiarthoplasty Vaccinations: None. Consultations: Ortho, PT/OT Pending Studies/Follow-Up: see instructions below Medication Reconciliation New Medications: Aspirin (Aspirin EC Low Dose) 81 Mg Ectab 81 MG PO BID for 30 Days, #60 TAB Cyanocobalamin (Vitamin B-12) 500 Mcg Tab 500 MCG PO QAM for 30 Days, #30 TAB Oxycodone HCl (Oxycodone HCl) 5 Mg Tab 5 MG PO Q4H PRN for Pain for 7 Days, #15 TAB 0 Refills Senna (Senna Lax) 8.6 Mg Tab 17.2 MG PO HS PRN for Constipation for 10 Days, #10 TAB Admission Information HPI (per Admitting provider): HISTORY OF PRESENT ILLNESS: History is obtained from the patient and records. Medical history is significant for venous insufficiency, past tobacco abuse. Patient was helping somebody clean out the garage today when he lost his balance and landed onto his left side He subsequently noted excruciating left hip pain and was unable to get up. Patient was evaluated at [facility] Emergency Room. Plain x-ray showed left femoral neck fracture. Transferred to [facility] after coordinating with orthopedics due to lack of Orthopedics services at [facility] this weekend. Physical Exam (per Admitting): PHYSICAL EXAMINATION: VITAL SIGNS: Blood pressure was noted to be 150/103, pulse rate 82, RR 16, temperature 37, and sats 96% on room air. GENERAL: Noted to be pleasant. No respiratory distress. SKIN: Pallor. HEENT: [employer] palpebral conjunctivae. Dry mucosa. chronic ptosis on the left. NECK: No JVD. Supple. CHEST: Clear to auscultation. HEART: Regular rate and rhythm. ABDOMEN: Some distention, nontender. EXTREMITIES: Tenderness in the left hip. NEUROLOGIC: No gross focality. Hospital Course 66 yo M s/p mechanical fall at home with L femoral neck fracture s/p surgery on 04/10 1. LEFT FEMORAL NECK FRACTURE S/P TRAUMA Patient slipped and fell at home; was transferred from [facility], as no orthopedic coverage there over weekend. -S/P Left Hip Bipolar hemiarthroplasty on 04/10/17 -Pain mx, Wound care, DVT prophylaxis, PT/OT per orthopedics -H & H monitoring- Stable -Ortho on board- appreciate inputs -pt decided rehab is OK going along with PT/OT recommendations-referral placed and likely dc tomorrow. 2. ANEMIA: Had anemia work up on admission- Iron studies, folate, - normal. B12 was low normal. Will start daily B12 supplementation. -Post operatively H & H - stable, no indications for transfusion at this time. 3. Thrombocytopenia-stable, not much different from baseline. No bleeding issues at this time. Resolved to normal level at discharge. On day of discharge he was hemodynamically stable and afebrile with post- operative pain controlled well with Tylenol. He did not require oxycodone post- operatively. Physical exam was unremarkable aside from surgical wound which was intact with gato and a dressing that was c/d/i. No drain was in place. He was discharged in stable condition to SNF and it was highly recommended that he establish care with a PCP and follow-up with them 1 week post-discharge from SNF facility. He verbalized understanding with intent to comply. Nikkie Villalpando DO [facility] Hospitalist Total time spent on discharge = 60 minutes This includes examination of the patient, discharge planning, medication reconciliation, and communication with other providers. Discharge Instructions Discharge Instructions Date of Service Apr 13, 2017. Admission Reason for Admission: Hip Fracture Discharge Discharge Diagnosis / Problem: Hip fracture Discharge Goals Goal(s): Improve function, Increase independence Activity Recommendations Activity Limitations: per Instructions/Follow-up section . Instructions / Follow-Up Instructions / Follow-Up Please take all medications as instructed. It is recommended that you get an appointment with your primary care physician ( PCP) within one week of discharge from the rehabilitation facility. This is for follow-up from you hospitalization. You have a 24mm sclerotic lesion on a bone in your right hip that was seen on xray. This may need to be followed for stability by your PCP and is worth discussing with them at this follow-up visit. Please follow-up with Orthopedics per the instructions below; please comply with all post-operative instructions including aspirin twice daily for 30 days to prevent post-operative blood clots. It was a pleasure taking care of you! Call if you have any questions or problems. You can reach a [facility] hospitalist on duty at [facility] 24 hours a day by calling [phone]. Take care of yourself. Nikkie Villalpando, [facility] Hospitalist
--- NOTE | 2017-04-15 07:39 | EDITING REQUIRED CODING QUERY ---
CODING QUERY ANEMIA To promote full compliance with coding requirements relating to patient care, physician participation is requested in all cases of information coder uncertainty. Please assist us with the question(s) below: Coding Question(s): The record reflects the following clinical documentation: Postoperative anemia There are several coding choices for this diagnosis and more specificity is needed for code selection. Please indicate the type of anemia this patient had: (x ) Acute blood loss anemia ( ) Acute postoperative anemia due to dilutional fluids ( ) Chronic blood loss anemia ( ) Iron deficient anemia due to blood loss ( ) Iron deficiency anemia ( ) Anemia, unspecified or other ( ) Other: (please specify) ( ) Unable to determine Thank you for your time, BRIAN Hernandez, [employer]
== END 2017-04-13 17:32 | DRG 470 ==
LOC: C.MSN 20:19 → EEVIPCON 20:19
PROVIDERS: ADMIT Internal Medicine; ATTEND Hospitalist
PROC: 0SRB02Z Replacement of Left Hip Joint with Metal on Polyethylene Synthetic Substitute, Open Approach (ICD-10-PCS; principal; 2017-04-10 09:00)
DX: S72.002A Fracture of unspecified part of neck of left femur, initial encounter for closed fracture (principal); D62 Acute posthemorrhagic anemia; W01.0XXA Fall on same level from slipping, tripping and stumbling without subsequent striking against object, initial encounter; Y93.E9 Activity, other interior property and clothing maintenance; Y92.015 Private garage of single-family (private) house as the place of occurrence of the external cause; R73.9 Hyperglycemia, unspecified; D69.6 Thrombocytopenia, unspecified; K21.9 Gastro-esophageal reflux disease without esophagitis; Z87.891 Personal history of nicotine dependence